=== PATIENT | female | born 1950 | race Caucasian/White ===

== ENCOUNTER 2024-10-24 09:30 | Outpatient (CLI) | payer MEDICARE, OTHER | END 2024-10-24 09:31 | disposition home or self-care (01) | LOC: PET 09:30 | PROVIDERS: ATTEND Internal Medicine Hematology & Oncology | DX: C08.0 Malignant neoplasm of submandibular gland (principal); C50.211 Malignant neoplasm of upper-inner quadrant of right female breast | CPT/HCPCS: 78815; A9552 ==